=== PATIENT | male | born 1980 | race Hispanic/Latino ===

== ENCOUNTER 2021-09-10 09:46 | Emergency (ER) | payer SELFPAY ==
[2021-09-10 10:42] LABS: Hemoglobin 15.6 g/dL (14.0-18.0); Mean Corpuscular HGB CONC 34.6 g/dL (32.0-36.0); Mean Corpuscular Hemoglobin 33.7 pg (27.0-31.0); Mean Corpuscular Volume 97.4 fL (78.0-98.0); Mean Platelet Volume 6.8 fL (7.4-10.4); Platelet Count 284 thou/uL (130-400); RBC Distribution Width 11.1 % (11.5-14.5); Red Blood Cell (RBC) Count 4.62 mill/uL (4.70-6.10); White Blood Cell (WBC) Count 4.6 thou/uL (4.8-10.8)
[2021-09-10] MEDS ORDERED: Ondansetron PF 4 MG/2 ML Vial ONE (10:57)
[2021-09-10] MEDS ORDERED: Morphine 4 MG/ML VIAL ONE (10:58)
[2021-09-10 11:10] LABS: ALT (SGPT) 64 U/L (8-55); AST (SGOT) 41 U/L (5-34); Albumin 3.8 g/dL (3.5-5.0); Alkaline Phosphatase 100 U/L (40-110); Anion Gap 14 mmol/L (10-20); BUN (Urea Nitrogen) 10 mg/dL (8.9-20.6); Band 1 % (5-11); Bilirubin, Total 0.6 mg/dL (0.2-1.2); Calc. Creatinine Clearance 0 mL/min (70-130); Calcium 8.7 mg/dL (7.8-10.44); Carbon Dioxide 24 mmol/L (22-29); Chloride 107 mmol/L (98-107); Eosinophils 6 % (0-10); Estimated GFR 118; Globulin 2.7 g/dL (2.4-3.5); Glucose 113 mg/dL (70-105); Lymphocytes 32 % (21-51); MDiff Complete? YES; Monocytes 15 % (0-10); Neutrophil 46 % (42-75); Platelet Morphology Comment Appears Adequate; Protein, Total 6.5 g/dL (6.0-8.3); RBC Morphology Normal; Sodium 141 mmol/L (136-145)
[2021-09-10] MEDS ORDERED: Iopamidol 370 76% 100 ML VIAL ONE (13:37)
== END 2021-09-10 12:31 ==
LOC: ERS 09:46
DX: R10.84 Generalized abdominal pain (principal)
CPT/HCPCS: 74177; 80053; 83690; 85025; 96374; 96375; J2270; J2405; Q9967